=== PATIENT | female | born 1955 | race Caucasian/White ===

== ENCOUNTER 2024-08-01 08:14 | Outpatient (CLI) | payer MEDICARE, MEDICAID, SELFPAY ==
[2024-08-01 08:34] VITALS: BP 154/70; PULSE 65; RESP 14; TEMP 36.1; O2SAT 98
--- NOTE | 2024-08-01 09:09 | PDOC.PAIN ---
Date of service: 08/01/24 Time of Service: 09:39 Pain Managment Procedure Note Procedure Note Procedure Note: Diagnostic Lumbar Facet Joint Injection ? Location: Right Lumbar Facet Joints ? Levels: L3-4,L4-5,L5-S1 ? 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 Post-procedure Diagnosis:? The same as above ? Sedation:? None ? Estimated blood loss:? less than 2 cc ? Surgeon: Jovani White MD COMMENT: Pain 8/ .Decision was made to proceed with intra-articular facet injections for the possibility of not having to do medial branch blocks and radiofrequency ablation if patient get long lasting relief (> 3 months). ? Procedure Detail:? The procedure and potential risks were explained to the patient and informed written consent was obtained. The patient was escorted to the procedure room and placed in the prone position. Pillows were utilized for proper positioning and comfort.? Time out was performed in the procedure room with nursing staff confirming the patient's identity, procedure to be performed, allergies, and any blood thinning or anti-platelet medications.? Sterile technique was maintained throughout the procedure.? The patient's lumbosacral area was prepped with chlorhexidine and draped in a sterile fashion. Lidocaine 1% was used to anesthetize the skin. An oblique fluoroscopic view was obtained, with visualization of the facet joint.? A 22gauge, Quincke needle was gently advanced through the facet capsule.? Needle placement was confirmed with fluoroscopy in AP, oblique, and lateral views by injecting 0.25cc of contrast.? 20 mg of Depomedrol and 0.5ml of 0.5% bupivacaine was injected into the capsule at L3-4 Right . This was repeat at L4-5 and L5-S1 Right ? The patient tolerated the procedure well and was transported to recovery area for observation and discharge instructions. Permanent images saved and recorded. Plan:? Follow up prn COMMENT:Pain went from 8/10 to 10. Pain? 30 % better. Will use this as both diagnostic and potentially therapeutic.? With short-term relief from the level that it was not long-lasting then we will proceed with for LMBB #2 and possible radiofrequency ablation Coding Conscious Sedation used for procedure: No CPT Codes: LMBB (includes Fluoro) Lumbar/Sacral, single lvl - 44612 ([id number] ~G) LMBB (includes Fluoro) Lumbar/Sacral, 2nd lvl - 14987 ([id number] ~G) LMBB (includes Fluoro) Lumbar/Sacral, 3rd & add'l lvls - 68479 ([id number] ~G) Additional Codes: Date of Service (21113) Date of service: 08/01/24
[2024-08-01 09:41] VITALS: PULSE 76; O2SAT 98
[2024-08-01] MEDS: Bupivacaine 0.5% Pres-Free 10 ML VIAL IJ (09:42)
[2024-08-01] MEDS: Omnipaque 240 MG/ML 50 ML BTL IJ (09:42)
[2024-08-01] MEDS: Nerve Block Tray 1 EACH MC (09:43)
[2024-08-01] MEDS: methylPREDNISolone ACETATE 80 MG/ML VIAL IJ (09:43)
--- NOTE | 2024-08-01 09:49 | DI.RAD_ITS ---
Exam(s) XR PAIN CLINIC LUMBAR SP 2V EXAM: XR PAIN CLINIC LUMBAR SP 2V CLINICAL HISTORY: Dx: Lumbar Spondylosis TECHNIQUE: 2D and realtime digital imaging was performed. CONTRAST MATERIAL: Refer to procedure report. COMPARISON: No exams were available for comparison FINDINGS: Fluoroscopy was provided for Dr. Casey during the performance of a lumbar facet joint injection. Please refer to the procedure report for complete details. Ka,r=14.1 mGy IMPRESSION: RADIATION DOSE DELIVERED: 0.0 0.0 0
== END 2024-08-01 08:15 | disposition home or self-care (01) ==
PROVIDERS: PCP Nurse Practitioner Family; Visit Provider Anesthesiology Pain Medicine
DX: M47.817 Spondylosis without myelopathy or radiculopathy, lumbosacral region (principal); M47.816 Spondylosis without myelopathy or radiculopathy, lumbar region; M54.50 Low back pain, unspecified
CPT/HCPCS: 64493; 64494; 64495; 72100; J0665; J1010; Q9967

== ENCOUNTER 2024-12-19 10:18 | Outpatient (CLI) | payer MEDICARE, MEDICAID, SELFPAY ==
--- NOTE | 2024-12-19 06:00 | DI.RAD_ITS ---
Exam(s) XR PAIN CLINIC SACRIOILIAC 2V EXAM: XR PAIN CLINIC SACRIOILIAC 2V CLINICAL HISTORY: Dx: Sacroiliac Joint Dysfunction. TECHNIQUE: Fluoroscopy was provided for the referring physician for guidance with performing pain clinic injection procedure. COMPARISON: No exams were available for comparison FINDINGS: Please see procedure note for details. Fluoro time: 14.3 seconds RADIATION DOSE DELIVERED: Ka,r=4.1 mGy
[2024-12-19 10:49] VITALS: BP 154/68; PULSE 78; RESP 19; TEMP 36.6; O2SAT 98
[2024-12-19 11:11] VITALS: PULSE 76; RESP 20; O2SAT 97
[2024-12-19 11:12] VITALS: BP 184/68; PULSE 74; PULSE 77; RESP 16; O2SAT 98
[2024-12-19 11:17] VITALS: BP 167/79; PULSE 71; PULSE 77; RESP 20; O2SAT 97
--- NOTE | 2024-12-19 11:19 | PDOC.PAIN ---
Date of service: 12/19/24 Time of Service: 11:19 Pain Managment Procedure Note Procedure Note Procedure Note: PROCEDURE NOTE RIGHT INTRA-ARTICULAR SACROILIAC JOINT INJECTION Date of Service: December 19, 2024 Patient: Jennifer Aldana Provider: Miko Pineda DO, MPH COMMENTS: I previously evaluated the patient in the office and their symptoms in relation to the sacroiliac joint pain have remained the same. Pre-operative diagnosis: Sacroiliac joint dysfunction ICD-10 M53.3 Post-operative diagnosis: Same Pre-procedure pain: VAS= 8/10 Jennifer Aldana has been referred to our [facility] for a Right intra-articular Sacroiliac joint injection. Jennifer was interviewed and the medical record reviewed. There were no medical, pharmacologic, radiographic or other structural contraindications to attempting a fluoroscopically-guided, contrast-enhanced, intra-articular Sacroiliac joint injection. The risks, benefits, and potential side effects of this procedure were reviewed with the patient. Questions and concerns were addressed. After it was clear that Jennifer was fully informed about the procedure, the printed consent form was signed by the patient and myself. Jennifer was placed in the prone position on the fluoroscopy table and an automated blood pressure cuff, 3 lead EKG, and pulse oximeter were applied. The skin entry point for approaching the Right sacroiliac joint was identified under the most advantageous fluoroscopic view and marked. Following thorough Chlorhexadine preparation of the skin and draping with sterile surgical drapes, 2 mls of 1% lidocaine was infiltrated into the skin at the entry point and the surrounding subcutaneous tissues. Next, a 3.5 22G spinal needle was placed under fluoroscopic guidance into the Right sacroiliac joint. Intra-articular placement was confirmed by a clear arthrogram resulting from the injection of 0.25ml of Omnipaque-240. Next, 1 ml of Depo- Medrol 80 mg/ml was injected intra-articularly with an initial reproduction of a significant component of the usual pain. This was followed with 1 ml of 1% Lidocaine. The needle was then removed without difficulty. (49 ml of Omnipaque-240 was wasted). Gonzalezs vital signs were stable throughout the procedure and were as recorded in nursing records. Follow up plans and appointments were discussed with Jennifer. Post procedure instructions were given as documented in nursing records. Having met discharge criteria, Jennifer was [facility] from the [facility]. COMMENTS: Post-procedure pain: VAS= 0/10. If the patient receives at least 50% improvement in pain and/or function for at least 3 months, this procedure can be repeated if needed. I personally performed this entire procedure. MIKO PINEDA DO, MPH ABPMR-subspecialty board certification in Pain Medicine [facility] Coding Conscious Sedation used for procedure: No CPT Codes: SI Joint Inj; incl Fluoro - 33717 ([id number] ~G) Right Additional Codes: Date of Service (21511) Date of service: 12/19/24 Diagnoses: Sacroiliac joint dysfunction
[2024-12-19] MEDS: Nerve Block Tray 1 EACH MC (11:23)
[2024-12-19] MEDS: Omnipaque 240 MG/ML 50 ML BTL IJ (11:23)
[2024-12-19] MEDS: methylPREDNISolone ACETATE 80 MG/ML VIAL IJ (11:24)
== END 2024-12-19 10:19 | disposition home or self-care (01) ==
LOC: PC 10:19
PROVIDERS: PCP Nurse Practitioner Family; Visit Provider Preventive Medicine Occupational Medicine
DX: M54.50 Low back pain, unspecified (principal); M53.3 Sacrococcygeal disorders, not elsewhere classified
CPT/HCPCS: 27096; 72200; J1010; Q9967

== ENCOUNTER → 2025-01-07 08:15 | Outpatient (BNVA) | payer MEDICARE, MEDICAID, SELFPAY | PROVIDERS: PCP Nurse Practitioner Family; Referring Provider Nurse Practitioner Family; Visit Provider Student in an Organized Health Care Education/Training Program | DX: M16.0 Bilateral primary osteoarthritis of hip (principal) | CPT/HCPCS: 99203; 20611 ==

== ENCOUNTER 2025-04-08 00:48 | Outpatient (CLI) | payer MEDICARE, MEDICAID, SELFPAY ==
[2025-04-08 14:13] LABS: HCT 38.8 % (36.0-46.0); HGB 12.5 g/dL (11.2-15.7); MCH 29.1 pg (27.0-33.0); MCHC 32.2 % (32.0-36.0); MCV 90 fL (80-95); MPV 9.3 fL (8.0-11.0); Platelet Count 379 10^3/uL (130-400); RBC 4.30 10^6/uL (3.93-5.22); RDW 12.7 % (11.7-14.6); RDW-SD 42.0 fL; WBC 10.69 10^3/uL (4.4-10.8)
[2025-04-08 14:32] LABS: Anion Gap 8.7 mmol/L (3-11); BUN 11 mg/dL (9-23); CO2 26.3 mmol/L (20.0-31.0); Calcium 9.4 mg/dL (8.3-10.6); Chloride 108 mmol/L (98-107); Glucose 86 mg/dL (74-106); Potassium 4.0 mmol/L (3.5-5.1); Sodium 143 mmol/L (136-145)
== END 2025-04-08 00:49 | disposition home or self-care (01) ==
LOC: LBO 00:48
PROVIDERS: PCP Nurse Practitioner Family; Visit Provider Student in an Organized Health Care Education/Training Program
DX: Z01.818 Encounter for other preprocedural examination (principal); M16.0 Bilateral primary osteoarthritis of hip
CPT/HCPCS: 36415; 80048; 85027; 86850; 86900; 86901

== ENCOUNTER 2025-04-08 15:28 | Outpatient (CLI) | payer MEDICARE, MEDICAID, SELFPAY ==
--- NOTE | 2025-04-08 13:00 | DI.RAD_ITS ---
Exam(s) XR PELVIS AP EXAM: XR PELVIS AP CLINICAL HISTORY: DJD R HIP. TECHNIQUE: 2D digital imaging was performed. COMPARISON: No exams were available for comparison FINDINGS: Single AP view of the pelvis-hips There are no fractures. There are endovascular stents in both iliac arteries. There are moderate degenerative changes in the hips. No osseous lesions. 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 Iliac artery endovascular stents. DATA REPOSITORY: RADIATION DOSE DELIVERED:
== END 2025-04-08 15:29 | disposition home or self-care (01) ==
LOC: DIORS 15:28
PROVIDERS: PCP Nurse Practitioner Family; Visit Provider Physician Assistant
DX: Z01.818 Encounter for other preprocedural examination (principal); M16.0 Bilateral primary osteoarthritis of hip
CPT/HCPCS: 99024; 72170